=== PATIENT | male | born 1965 | race Caucasian/White ===

== ENCOUNTER 2024-01-03 12:39 | Outpatient (CLI) | payer BC | END 2024-01-03 12:40 | disposition home or self-care (01) | LOC: SCSMRI 12:39 | PROVIDERS: ATTEND Orthopaedic Surgery | DX: M23.92 Unspecified internal derangement of left knee (principal); S83.242A Other tear of medial meniscus, current injury, left knee, initial encounter; M24.19 Other articular cartilage disorders, other specified site ==

== ENCOUNTER → 2024-01-17 | Outpatient (CLI) | payer BC ==
[2024-01-29 09:40] LABS: Anion Gap 11 mmol/L (10-20); BUN (Urea Nitrogen) 22 mg/dL (8.4-25.7); Calc. Creatinine Clearance 0 mL/min (70-130); Carbon Dioxide 29 mmol/L (22-29); Chloride 105 mmol/L (98-107); Estimated GFR 70; Potassium 4.2 mmol/L (3.5-5.1); Sodium 141 mmol/L (136-145)
[2024-01-29 09:41] LABS: %Eosinophils 1.3 % (0.0-10.0); %Lymphocytes 20.7 % (21.0-51.0); %Monocytes 8.9 % (0.0-10.0); Calcium 9.2 mg/dL (7.6-10.4); Glucose 78 mg/dL (70-105); Hematocrit 39.4 % (42.0-52.0); Hemoglobin 13.1 g/dL (14.0-18.0); Mean Corpuscular HGB CONC 33.2 g/dL (32.0-36.0); Mean Corpuscular Volume 93.1 fL (78.0-98.0); Mean Platelet Volume 10.5 fL (7.4-10.4); Platelet Count 274 10x3/uL (130-400); RBC Distribution Width 12.8 % (11.5-14.5); Red Blood Cell (RBC) Count 4.23 mill/uL (4.70-6.10)
[2024-01-29 09:42] LABS: #Basophils 0.06 10x3/uL (0.0-0.2); %Basophils 0.9 % (0.0-1.0)
== END ==
LOC: LABBT 10:14
PROVIDERS: ATTEND Orthopaedic Surgery
DX: Z01.812 Encounter for preprocedural laboratory examination (principal); S83.242A Other tear of medial meniscus, current injury, left knee, initial encounter
CPT/HCPCS: 36415; 80048; 85025

== ENCOUNTER 2024-01-24 08:07 | Day surgery (SDC) | payer BC ==
[2024-01-24] MEDS ORDERED: PROPOFOL 20 ML ONE (09:01)
[2024-01-24] MEDS ORDERED: Bupivacaine PF 0.5% 30 ML VIAL ONE (09:01)
[2024-01-24] MEDS ORDERED: fentaNYL 50 mcg/mL 1 mL Vial ONE (09:01)
[2024-01-24] MEDS ORDERED: Lidocaine 1% (PF) 30 ML VIAL ONE (09:01)
[2024-01-24] MEDS ORDERED: Lidocaine 2% PF 5 ML VIAL ONE (09:02)
[2024-01-24] MEDS ORDERED: fentaNYL PF 100 MCG/2 ML SYRINGE ONE (09:33)
[2024-01-24] MEDS ORDERED: PROPOFOL 40 ML ONE (09:33)
[2024-01-24] MEDS ORDERED: CEFAZOLIN 2 GM VIAL ONE (09:40)
[2024-01-24] MEDS ORDERED: Glycopyrrolate 0.2 MG/ML 5 ML SYRINGE ONE (10:11)
[2024-01-24] MEDS ORDERED: PHENYLEPHRINE-NS 100 MCG/ML 10 ML SYRINGE ONE (10:11)
[2024-01-24] MEDS ORDERED: Ondansetron PF 4 MG/2 ML Vial ONE (10:25)
[2024-01-24] MEDS ORDERED: Ketorolac Tromethamine 30 MG (1 mL) VIAL ONE ×2 (10:25→10:26)
[2024-01-24] MEDS ORDERED: Metoclopramide HCl 10 MG (2 mL) VIAL ONE (10:26)
== END 2024-01-24 13:33 | disposition home or self-care (01) ==
LOC: SDC 08:07
PROVIDERS: ATTEND Orthopaedic Surgery
PROC: 0SBD4ZZ Excision of Left Knee Joint, Percutaneous Endoscopic Approach (ICD-10-PCS; principal; 2024-01-24)
PROC: 3E0T3BZ Introduction of Anesthetic Agent into Peripheral Nerves and Plexi, Percutaneous Approach (ICD-10-PCS; principal; 2024-01-24)
DX: S83.242A Other tear of medial meniscus, current injury, left knee, initial encounter (principal); S83.512A Sprain of anterior cruciate ligament of left knee, initial encounter; E78.5 Hyperlipidemia, unspecified; Z79.899 Other long term (current) drug therapy; X58.XXXA Exposure to other specified factors, initial encounter
CPT/HCPCS: J0665; J1885; J2405; J2704; J2765; J3010